=== PATIENT | male | born 1965 | race Caucasian/White ===

== ENCOUNTER 2019-06-25 11:08 | Emergency (ER) | payer BC ==
[2019-06-25] MEDS: HYDROmorphone 2 MG/ML SDV IM ONE (11:35)
--- NOTE | 2019-06-25 12:03 | EDM.PDOC ---
ED HPI GENERAL MEDICAL PROBLEM - General Chief Complaint: Flank Pain Stated Complaint: Possible kidney stone Time Seen by Provider: 06/25/19 11:15 Source of Information: Reports: Patient History Limitations: Reports: No Limitations - History of Present Illness INITIAL COMMENTS - FREE TEXT/NARRATIVE: Pt is a 53 years old male presents to emergency room with left sided back pain. Pt claims that pain started suddenly around 10 am yesterday. Yesterday he corona his breakfast and [place], he drove 2 [place] and the ride was very bumpy, that is when the pain started. Pain is intermittent and sharp. He has been frequently urinating. No hematuria or dysuria. Last evening he claims he felt the pain radiate into his left groin and testicles. Today morning the pain again got worse. He rates his pain at 9/10 No nausea or vomiting. No fever or chills. Onset Date: 06/24/19 Onset Time: 10:00 Duration: Intermittent Location: Reports: Back Quality: Reports: Ache, Sharp Severity: Severe Improves with: Reports: None Worsens with: Reports: None Associated Symptoms: Denies: Confusion, Chest Pain, Cough, Diaphoresis, Fever/ Chills, Headaches, Nausea/Vomiting, Rash, Seizure, Shortness of Breath, Syncope , Weakness Treatments CENTRAL SUPPLY AIDE: Reports: Other (see below) Other Treatments CENTRAL SUPPLY AIDE: possible Ibuprofen at 0200, otherwise last night Left Lower Flank Pain Score (Numeric/FACES): 9 - Related Data Allergies Allergy/AdvReac Type Severity Reaction Status Date / Time No Known Allergies Allergy Verified 06/25/19 11:22 Past Medical History HEENT History: Reports: Impaired Vision, Other (See Below) Other HEENT History: beginning of hearing loss Musculoskeletal History: Reports: Gout, Other (See Below) Other Musculoskeletal History: septic bursitis with hospitalization Psychiatric History: Reports: Anxiety, Other (See Below) Other Psychiatric History: situational anxiety Endocrine/Metabolic History: Reports: Obesity/BMI 30+ Dermatologic History: Reports: Other (See Below) Other Dermatologic History: dry skin to knees - Infectious Disease History Infectious Disease History: Reports: Chicken Pox, Mumps - Past Surgical History HEENT Surgical History: Reports: None GI Surgical History: Reports: Colonoscopy Endocrine Surgical History: Reports: None Dermatological Surgical History: Reports: None ED ROS GENERAL - Review of Systems Review Of Systems: See Below Constitutional: Denies: Fever, Chills HEENT: Denies: Rhinitis, Throat Pain Respiratory: Denies: Shortness of Breath, Pleuritic Chest Pain, Cough, Sputum Cardiovascular: Denies: Chest Pain, Lightheadedness GI/Abdominal: Denies: Abdominal Pain, Constipation, Diarrhea, Nausea, Vomiting : Reports: Flank Pain (left), Frequency. Denies: Dysuria, Hematuria, Urgency , Urinary Retention Musculoskeletal: Denies: Joint Swelling Skin: Denies: Bruising, Pruritis, Rash, Wound ED EXAM, GENERAL - Physical Exam Exam: See Below Exam Limited By: No Limitations General Appearance: Alert, WD/WN, Moderate Distress Eye Exam: Bilateral Eye: EOMI, PERRL Ears: Normal External Exam, Normal Canal, Hearing Grossly Normal, Normal TMs Ear Exam: Bilateral Ear: Auricle Normal, Canal Normal, TM normal Nose: Normal Inspection, Normal Mucosa, No Blood Throat/Mouth: Normal Inspection, Normal Lips, Normal Teeth, Normal Gums, Normal Oropharynx, Normal Voice, No Airway Compromise Head: Atraumatic, Normocephalic Neck: Normal Inspection, Supple, Non-Tender, Full Range of Motion Respiratory/Chest: No Respiratory Distress, Lungs Clear, Normal Breath Sounds, No Accessory Muscle Use, Chest Non-Tender Cardiovascular: Normal Peripheral Pulses, Regular Rate, Rhythm, No Edema, No Gallop, No JVD, No Murmur, No Rub GI/Abdominal: Normal Bowel Sounds, Soft, Non-Tender, No Organomegaly, No Distention, No Abnormal Bruit, No Mass (Male) Exam: No Hernia, Normal Inspection Back Exam: Normal Inspection, Full Range of Motion, CVA Tenderness (L) Extremities: Normal Inspection, Normal Range of Motion Course - Vital Signs Text/Narrative:: Pt has left midback pain, he is tender over the left renal angle, rates his pain at 9/10, intermittent and sharp. He did receive Dilaudid 1mg in the emergency room and his pain settled down into 1-2/10. His UA is negative. His CT abdomen and pelvis with stone protocol is negative for stones or any other acute abdomen. He is very comfortable in the emergency room. Pt reassured that he might have passed a stone and the pain has resolved. He has no other constitutional symptoms or findings. Vitals stable. Pt reassured. return if he develops severe abdominal pain, with high grade fever or chills, sudden onset abdominal distension, severe back pain, nausea or vomiting. Otherwise followup with his primary care provider next week for recheck. Last Recorded V/S: Last Vital Signs Temp 98.0 F 06/25/19 11:26 Pulse 73 06/25/19 11:26 Resp 16 06/25/19 11:26 BP 170/95 H 06/25/19 11:26 Pulse Ox 96 06/25/19 11:26 - Orders/Labs/Meds Orders: Active Orders 24 hr Category Date Time Status Kidney Stone Protocol [CT] Stat Exams 06/25/19 11:23 Taken Labs: Laboratory Tests 06/25/19 Range/Units 11:30 Urine Color Yellow Urine Appearance Clear (CLEAR) Urine pH 6.0 (5.0-8.0) Ur Specific [place] 1.015 (1.003-1.030) Urine Protein Negative (NEGATIVE) mg/dL Urine Glucose (UA) Negative (NEGATIVE) mg/dL Urine Ketones Negative (NEGATIVE) mg/dL Urine Occult Blood Negative (NEGATIVE) Urine Nitrite Negative (NEGATIVE) Urine Bilirubin Negative (NEGATIVE) Urine Urobilinogen 0.2 (0.2-1.0) E.U./dL Ur Leukocyte Esterase Negative (NEGATIVE) Meds: Medications Discontinued Medications Generic Name Dose Route Start Last Admin Trade Name Shukri PRN Reason Stop Dose Admin Hydromorphone HCl 1 mg 06/25/19 11:22 06/25/19 11:35 Dilaudid IM 06/25/19 11:23 1 mg ONETIME ONE Administration Departure - Departure Time of Disposition: 15:30 Disposition: Home, Self-Care 01 Condition: Fair Clinical Impression: Left-sided back pain - Discharge Information *PRESCRIPTION DRUG MONITORING PROGRAM REVIEWED*: Not Applicable *COPY OF PRESCRIPTION DRUG MONITORING REPORT IN PATIENT FABIAN: Not Applicable Instructions: Kidney Stones, [id number], Dietary Guidelines to Help Prevent Kidney Stones Referrals: PCP,None [Primary Care Provider] - Forms: ED Department Discharge Additional Instructions: YOu have jsut passed a kidney stone. If pain persists you are to take motrin as directed on the bottle for pain. YOu have been given information on kidney stones and diet for kidney stones. If symptoms return, please be seen either in clinic or ER. - Problem List & Annotations (1) Left-sided back pain SNOMED Code(s): 514830155 Code(s): M54.9 - DORSALGIA, UNSPECIFIED Status: Acute Priority: Low - Problem List Review Problem List Initiated/Reviewed/Updated: Yes - My Orders Last 24 Hours: My Active Orders 06/25/19 11:23 Kidney Stone Protocol [CT] Stat - Assessment/Plan Last 24 Hours: My Active Orders 06/25/19 11:23 Kidney Stone Protocol [CT] Stat Assessment:: Left back pain improved- possible passed small ureteric stone Plan: Pt has left midback pain, he is tender over the left renal angle, rates his pain at 9/10, intermittent and sharp. He did receive Dilaudid 1mg in the emergency room and his pain settled down into 1-2/10. His UA is negative. His CT abdomen and pelvis with stone protocol is negative for stones or any other acute abdomen. He is very comfortable in the emergency room. Pt reassured that he might have passed a stone and the pain has resolved. He has no other constitutional symptoms or findings. Vitals stable. Pt reassured. return if he develops severe abdominal pain, with high grade fever or chills, sudden onset abdominal distension, severe back pain, nausea or vomiting. Otherwise followup with his primary care provider next week for recheck.
--- NOTE | 2019-06-25 19:24 | CT ---
Date of Service: 06/25/19 Clinical Data: possible kidney stones UNENHANCED ABDOMEN AND PELVIC CT: Multislice acquisition through the abdomen and pelvis without IV or oral contrast was performed. The lung bases are clear. The heart size is normal. There is diffuse fatty infiltration of the liver. No focal hepatic lesions. The gallbladder appears normal. No calcified gallstones. The spleen appears normal. The pancreas appears normal. The right and left adrenals appear normal. The right and left kidneys appear normal. No nephrocalcinosis or nephrolithiasis. No hydronephrosis or hydroureter. The bladder is partially fluid filled. It appears normal. The prostate is mildly enlarged. The appendix is not dilated. No evidence of appendicitis. No free air. No free fluid. No dilated loops of bowel. No adenopathy. No aortic aneurysm. There is an umbilical hernia containing fat. There are bilateral inguinal hernias containing fat. [id number] [facility]
== END 2019-06-25 13:15 | disposition home or self-care (01) ==
LOC: LB.ED 11:08
DX: M54.5 Low back pain (principal); E66.9 Obesity, unspecified
CPT/HCPCS: 74176; 81003; 96372; 99284; J1170